=== PATIENT | female | born 1975 | race Caucasian/White ===

== ENCOUNTER 2018-05-31 10:27 | Emergency (ER) | payer OTHER ==
--- NOTE | 2018-05-31 10:40 | EDM.PDOC ---
ED HPI GENERAL MEDICAL PROBLEM - General Stated Complaint: BACK PAIN Time Seen by Provider: 05/31/18 10:40 Source of Information: Reports: Patient History Limitations: Reports: No Limitations - History of Present Illness INITIAL COMMENTS - FREE TEXT/NARRATIVE: HISTORY AND PHYSICAL: History of present illness: Patient is a 42-year-old female who presents to the emergency room today with complaints of lumbar back pain. She states she chronically has low back pain and intermittently will perform an activity where it will "lock up". Yesterday she was sleeping when her back had became very tight and had dropped her to her knees. She was able to continue her day as the muscles slowly began to loosen up and she was able to walk around. This morning Review of systems: As per history of present illness and below otherwise all systems reviewed and negative. Past medical history: As per history of present illness and as reviewed below otherwise noncontributory. Surgical history: As per history of present illness and as reviewed below otherwise noncontributory. Social history: See social history for further information Family history: As per history of present illness and as reviewed below otherwise noncontributory. Physical exam: General: Well-developed and well-nourished 42-year-old female. Alert and oriented. Nontoxic appearing and in no acute distress. HEENT: Atraumatic, normocephalic, pupils equal and reactive bilaterally, negative for conjunctival pallor or scleral icterus, mucous membranes moist, TMs normal bilaterally, throat clear, neck supple, nontender, trachea midline. No drooling or trismus noted. No meningeal signs. No hot potato voice noted. Lungs: Clear to auscultation, breath sounds equal bilaterally, chest nontender. Heart: S1S2, regular rate and rhythm without overt murmur Abdomen: Soft, nondistended, nontender. Negative for masses or hepatosplenomegaly. Negative for costovertebral tenderness. Pelvis: Stable nontender. Genitourinary: Deferred. Rectal: Deferred. Skin: Intact, warm, dry. No lesions or rashes noted. Extremities: Atraumatic, negative for cords or calf pain. Neurovascular unremarkable. C-spine/Back: No pinpoint vertebral tenderness upon palpation. No crepitus, step -offs or obvious deformities. She does have some paraspinous muscular pain to the low lumbar back region which radiates into her bilateral gluteal/lateral hip (right greater than left). She denies any numbness, tingling or satellite paresthesia. She denies any urinary or fecal incontinence. Neuro: Awake, alert, oriented. Cranial nerves II through XII unremarkable. Cerebellum unremarkable. Motor and sensory unremarkable throughout. Exam nonfocal. Notes: During physical exam the patient is crying and unable to get comfortable on the cot. X-ray of the lumbar spine shows no acute findings. She states she does feel improved after the injection. She does have a ride to home. Vital signs are stable. Supportive care measures were reviewed and discussed. Voices understanding and is agreeable to plan of care. Denies any further questions or concerns at this time. Diagnostics: Lumbar back x-ray Therapeutics: Dilaudid 1mg IM Prescription: Flexeril Diclofenac Impression: Acute on chronic low back pain Plan: 1. The medication he received as an injection today does cause drowsiness so do not drive for the remaining day 2. When resting please lay on a flat firm surface. Limit your immobility to prevent muscle stiffness, get up to ambulate/move around/gentle stretching multiple times throughout the day. May alternate heat and ice to the painful area and 3. Tylenol as needed for back pain. Otherwise take the prescribed Flexeril and diclofenac as directed. Diclofenac is an anti-inflammatory so do not take any additional NSAIDs with this medication, such as ibuprofen or Aleve. Flexeril as a muscle relaxant, this medication may cause drowsiness a do not take it will driving her needing to be functioning outside of the house. 4. Please follow-up with your primary care provider as we discussed. 5. Return to the ED as needed and as discussed. Definitive disposition and diagnosis as appropriate pending reevaluation and review of above. Back Pain Score (Numeric/FACES): 8 - Related Data Allergies Allergy/AdvReac Type Severity Reaction Status Date / Time No Known Allergies Allergy Verified 05/31/18 10:34 Home Meds: Home Meds . [No Known Home Meds] 05/31/18 [History] Past Medical History - Infectious Disease History Infectious Disease History: Reports: None - Past Surgical History GI Surgical History: Reports: Cholecystectomy Female Surgical History: Reports: Hysterectomy Social & Family History - Family History Family Medical History: Noncontributory ED ROS GENERAL - Review of Systems Review Of Systems: ROS reveals no pertinent complaints other than HPI. ED EXAM, GENERAL - Physical Exam Exam: See Below (See dictation) Course - Vital Signs Last Recorded V/S: Last Vital Signs Temp 97.8 F 05/31/18 10:36 Pulse 60 05/31/18 10:36 Resp 28 H 05/31/18 10:36 BP 120/63 05/31/18 10:36 Pulse Ox 99 05/31/18 10:36 - Orders/Labs/Meds Orders: Active Orders 24 hr Category Date Time Status Lumbar Spine 2 or 3V [CR] Stat Exams 05/31/18 10:49 Ordered Meds: Medications Discontinued Medications Generic Name Dose Route Start Last Admin Trade Name Freq PRN Reason Stop Dose Admin Hydromorphone HCl 1 mg 05/31/18 10:49 05/31/18 10:55 Dilaudid IM 05/31/18 10:50 Not Given ONETIME ONE Hydromorphone HCl 1 mg 05/31/18 11:00 05/31/18 10:59 Dilaudid IM 05/31/18 11:01 1 mg ONETIME ONE Administration Departure - Departure Time of Disposition: 11:34 Disposition: Home, Self-Care 01 Clinical Impression: Lumbar back pain - Discharge Information Instructions: Back Pain, Adult Referrals: PCP,None [Primary Care Provider] - Additional Instructions: The following information is given to patients seen in the emergency department who are being discharged to home. This information is to outline your options for follow-up care. We provide all patients seen in our emergency department with a follow-up referral. The need for follow-up, as well as the timing and circumstances, are variable depending upon the specifics of your emergency department visit. If you don't have a primary care physician on staff, we will provide you with a referral. We always advise you to contact your personal physician following an emergency department visit to inform them of the circumstance of the visit and for follow-up with them and/or the need for any referrals to a consulting specialist. The emergency department will also refer you to a specialist when appropriate. This referral assures that you have the opportunity for follow-up care with a specialist. All of these measure are taken in an effort to provide you with optimal care, which includes your follow-up. Under all circumstances we always encourage you to contact your private physician who remains a resource for coordinating your care. When calling for follow-up care, please make the office aware that this follow-up is from your recent emergency room visit. If for any reason you are refused follow-up, please contact the [facility] Emergency Department at and asked to speak to the emergency department charge nurse. [facility] [address] [place] [address] [facility] [address] [place] [address] 1. The medication he received as an injection today does cause drowsiness so do not drive for the remaining day 2. When resting please lay on a flat firm surface. Limit your immobility to prevent muscle stiffness, get up to ambulate/move around/gentle stretching multiple times throughout the day. May alternate heat and ice to the painful area and 3. Tylenol as needed for back pain. Otherwise take the prescribed Flexeril and diclofenac as directed. Diclofenac is an anti-inflammatory so do not take any additional NSAIDs with this medication, such as ibuprofen or Aleve. Flexeril as a muscle relaxant, this medication may cause drowsiness a do not take it will driving her needing to be functioning outside of the house. 4. Please follow-up with your primary care provider as we discussed. 5. Return to the ED as needed and as discussed. - My Orders Last 24 Hours: My Active Orders 05/31/18 10:49 Lumbar Spine 2 or 3V [CR] Stat - Assessment/Plan Last 24 Hours: My Active Orders 05/31/18 10:49 Lumbar Spine 2 or 3V [CR] Stat
[2018-05-31] MEDS ORDERED: HYDROmorphone 2 MG/ML SDV IM ONE (10:49)
[2018-05-31] MEDS ORDERED: HYDROmorphone 1 MG/ML Syringe IM ONE (11:00)
--- NOTE | 2018-05-31 11:33 | CR ---
INDICATION: Back pain. TECHNIQUE: Three views lumbar spine. FINDINGS: Five lumbar type vertebral bodies. Vertebral bodies are normal in height and alignment. Pedicles, transverse processes, spinous processes are intact. Disc spaces are normal. IMPRESSION: Normal lumbar spine. Dictated by Bahman Whittaker MD @ May 31 2018 11:30AM Signed by Dr. Bahman Whittaker @ May 31 2018 11:31AM
== END 2018-05-31 11:48 | disposition home or self-care (01) ==
LOC: MW.ED 10:27
DX: M54.5 Low back pain (principal); G89.29 Other chronic pain
CPT/HCPCS: 72100; 96372; 99283; J1170

== ENCOUNTER 2018-10-26 10:41 | Emergency (ER) | payer OTHER ==
[2018-10-26] MEDS ORDERED: Sodium Chloride 0.9% 10 ML Syringe FLUSH PRN (10:47)
[2018-10-26] MEDS ORDERED: Sodium Chloride 0.9% 2.5 ML Syringe FLUSH PRN (10:47)
[2018-10-26] MEDS ORDERED: Sodium Chloride 0.9% 1,000 ML IV ONE (10:47)
[2018-10-26] MEDS ORDERED: Ketorolac 60 MG/2 ML SDV IM ONE (10:48)
--- NOTE | 2018-10-26 10:48 | EDM.PDOC ---
ED HPI GENERAL MEDICAL PROBLEM - General Chief Complaint: Chest Pain Stated Complaint: CHEST DISCOMFORT Time Seen by Provider: 10/26/18 10:48 Source of Information: Reports: Patient History Limitations: Reports: No Limitations - History of Present Illness INITIAL COMMENTS - FREE TEXT/NARRATIVE: HISTORY AND PHYSICAL: History of present illness: patient is a 42-year-old female presents to the ED with concern of left arm pain. She reports a history of cervical disc disease and numbness of her right arm and hand. She states this morning around 4 AM she started having a sharp pain in her left arm that really concerned her. She reports that now she has a dull ache in the arm with an occasional sharp pain. Pain goes into her left chest behind her left shoulder blade and down her left arm. She states she does get short of breath when she has the sharp pain but also notes that she has been anxious because the pain and thinks may be due to this. She denies any recent injury or trauma to the neck or arm. She reports that she has neck pain and headache and she always has this and is not new or worsened. She denies any visual disturbances, fevers, chills, nausea, vomiting, abdominal pain. Has history of mitral valve prolapse but otherwise denies cardiac history. Review of systems: As per history of present illness and below otherwise all systems reviewed and negative. Past medical history: As per history of present illness and as reviewed below otherwise noncontributory. Surgical history: As per history of present illness and as reviewed below otherwise noncontributory. Social history: No reported history of drug or alcohol abuse. Family history: As per history of present illness and as reviewed below otherwise noncontributory. Physical exam: General: Patient sitting comfortably in no acute distress and nontoxic appearing HEENT: Atraumatic, normocephalic, pupils reactive, negative for conjunctival pallor or scleral icterus, mucous membranes moist, throat clear, neck supple, nontender, trachea midline. No meningeal signs. Lungs: Clear to auscultation, breath sounds equal bilaterally, chest nontender. Heart: S1S2, regular, negative for clicks, rubs, or overt murmur. Abdomen: Soft, nondistended, nontender. Negative for masses or hepatosplenomegaly. Negative for costovertebral tenderness. No rigidity, rebound , guarding. Pelvis: Stable nontender. Genitourinary: Deferred. Rectal: Deferred. Spine: No cervical or vertebral tenderness or step-offs palpation. Cervical paraspinal tenderness. Extremities: Atraumatic, negative for cords or calf pain. Neurovascular unremarkable. Neuro: Awake, alert, oriented. Cranial nerves II through XII unremarkable. Cerebellum unremarkable. Motor and sensory unremarkable throughout. Exam nonfocal. Notes: Diagnostics: CBC, CMP, troponin, PT/INR, EKG, chest x-ray, cervical spine x-ray Therapeutics: Toradol 30 mg IV Norflex 60mg IM Prescriptions: Impression: Carvical radiculopathy, arm pain Plan: Take medication as instructed, do not driving as it may make you drowsy. Tylenol and Motrin as needed Follow-up with primary care provider Return to ED as needed as discussed Definitive disposition and diagnosis as appropriate pending reevaluation and review of above. Left Arm Pain Score (Numeric/FACES): 7 - Related Data Allergies Allergy/AdvReac Type Severity Reaction Status Date / Time No Known Allergies Allergy Verified 10/26/18 10:46 Home Meds: Home Meds Estradiol 0.5 mg PO ASDIRECTED 10/26/18 [History] Orphenadrine [Norflex] 100 mg PO BID PRN #12 tab 10/26/18 [Rx] Past Medical History - Infectious Disease History Infectious Disease History: Reports: None - Past Surgical History GI Surgical History: Reports: Cholecystectomy Female Surgical History: Reports: Hysterectomy Social & Family History - Family History Family Medical History: Noncontributory - Caffeine Use Caffeine Use: Reports: Coffee ED ROS GENERAL - Review of Systems Review Of Systems: ROS reveals no pertinent complaints other than HPI. ED EXAM, GENERAL - Physical Exam Exam: See Below (see dictation) Course - Vital Signs Last Recorded V/S: Last Vital Signs Temp 97.5 F 10/26/18 10:42 Pulse 70 10/26/18 10:42 Resp 18 10/26/18 10:42 BP 141/81 H 10/26/18 10:42 Pulse Ox 100 10/26/18 10:42 - Orders/Labs/Meds Orders: Active Orders 24 hr Category Date Time Status Cardiac Monitoring [RC] . DIRECTED Care 10/26/18 10:47 Active UA W/MICROSCOPIC [URIN] Stat Lab 10/26/18 10:47 Ordered Sodium Chloride 0.9% [Saline Flush] Med 10/26/18 10:47 Active 10 ml FLUSH ASDIRECTED PRN Sodium Chloride 0.9% [Saline Flush] Med 10/26/18 10:47 Active 2.5 ml FLUSH ASDIRECTED PRN Saline Lock Insert [OM.PC] Stat Oth 10/26/18 10:47 Ordered Medication Orders Sodium Chloride (Saline Flush) 10 ml FLUSH ASDIRECTED PRN PRN Reason: Keep Vein Open Sodium Chloride (Saline Flush) 2.5 ml FLUSH ASDIRECTED PRN PRN Reason: Keep Vein Open Labs: Laboratory Tests 10/26/18 10/26/18 10/26/18 Range/Units 10:53 10:53 10:53 WBC 8.78 (4.0-11.0) K/uL RBC 4.26 L (4.30-5.90) M/uL Hgb 13.5 (12.0-16.0) g/dL Hct 40.9 (36.0-46.0) % MCV 96.0 (80.0-98.0) fL MCH 31.7 (27.0-32.0) pg MCHC 33.0 (31.0-37.0) g/dL RDW Std Deviation 43.4 (28.0-62.0) fl RDW Coeff of Brodie 13 (11.0-15.0) % Plt Count 275 (150-400) K/uL MPV 10.40 (7.40-12.00) fL Neut % (Auto) 73.3 (48.0-80.0) % Lymph % (Auto) 18.3 (16.0-40.0) % Bee % (Auto) 7.3 (0.0-15.0) % Eos % (Auto) 0.8 (0.0-7.0) % Baso % (Auto) 0.3 (0.0-1.5) % Neut # (Auto) 6.4 H (1.4-5.7) K/uL Lymph # (Auto) 1.6 (0.6-2.4) K/uL Bee # (Auto) 0.6 (0.0-0.8) K/uL Eos # (Auto) 0.1 (0.0-0.7) K/uL Baso # (Auto) 0.0 (0.0-0.1) K/uL Nucleated RBC % 0.0 /100WBC Nucleated RBCs # 0 K/uL INR 1.06 Sodium 135 L (136-145) mmol/L Potassium 3.8 (3.5-5.1) mmol/L Chloride 101 (98-107) mmol/L Carbon Dioxide 24.4 (21.0-32.0) mmol/L BUN 11 (7.0-18.0) mg/dL Creatinine 0.6 (0.6-1.0) mg/dL Est Cr Clr Drug Dosing 105.47 mL/min Estimated GFR (MDRD) > 60.0 ml/min Glucose 115 H (74-106) mg/dL Calcium 9.5 (8.5-10.1) mg/dL Total Bilirubin 0.5 (0.2-1.0) mg/dL AST 15 (15-37) IU/L ALT 22 (14-63) IU/L Alkaline Phosphatase 52 (46-116) U/L Troponin I < 0.050 (0.000-0.056) ng/mL Total Protein 7.4 (6.4-8.2) g/dL Albumin 4.0 (3.4-5.0) g/dL Globulin 3.4 (2.6-4.0) g/dL Albumin/Globulin Ratio 1.2 (0.9-1.6) Lipase 129 (73-393) U/L Meds: Medications Generic Name Dose Route Start Last Admin Trade Name Freq PRN Reason Stop Dose Admin Sodium Chloride 10 ml 10/26/18 10:47 Saline Flush FLUSH ASDIRECTED PRN Keep Vein Open Sodium Chloride 2.5 ml 10/26/18 10:47 Saline Flush FLUSH ASDIRECTED PRN Keep Vein Open Discontinued Medications Generic Name Dose Route Start Last Admin Trade Name Freq PRN Reason Stop Dose Admin Sodium Chloride 1,000 mls @ 999 mls/hr 10/26/18 10:47 10/26/18 10:58 Normal Saline IV 10/26/18 11:47 999 mls/hr BOLUS ONE Administration Ketorolac Tromethamine 30 mg 10/26/18 10:50 10/26/18 10:59 Toradol IVPUSH 10/26/18 10:51 30 mg ONETIME ONE Administration Orphenadrine Citrate 60 mg 10/26/18 12:33 10/26/18 12:40 Norflex IM 10/26/18 12:34 60 mg NOW STA Administration Departure - Departure Time of Disposition: 12:49 Disposition: Home, Self-Care 01 Condition: Good Clinical Impression: Arm pain, Cervical radiculopathy Prescriptions: Orphenadrine [Norflex] 100 mg PO BID PRN #12 tab PRN Reason: Pain (Severe 7-10) Referrals: PCP,None [Primary Care Provider] - Forms: ED Department Discharge Additional Instructions: The following information is given to patients seen in the emergency department who are being discharged to home. This information is to outline your options for follow-up care. We provide all patients seen in our emergency department with a follow-up referral. The need for follow-up, as well as the timing and circumstances, are variable depending upon the specifics of your emergency department visit. If you don't have a primary care physician on staff, we will provide you with a referral. We always advise you to contact your personal physician following an emergency department visit to inform them of the circumstance of the visit and for follow-up with them and/or the need for any referrals to a consulting specialist. The emergency department will also refer you to a specialist when appropriate. This referral assures that you have the opportunity for follow-up care with a specialist. All of these measure are taken in an effort to provide you with optimal care, which includes your follow-up. Under all circumstances we always encourage you to contact your private physician who remains a resource for coordinating your care. When calling for follow-up care, please make the office aware that this follow-up is from your recent emergency room visit. If for any reason you are refused follow-up, please contact the [facility] Emergency Department at and asked to speak to the emergency department charge nurse. [facility] [address] [place] [id number] [facility] [address] [place] [id number] Take medication as instructed, do not driving as it may make you drowsy. Tylenol and Motrin as needed Follow-up with primary care provider Return to ED as needed as discussed - My Orders Last 24 Hours: My Active Orders 10/26/18 10:47 Cardiac Monitoring [RC] . DIRECTED UA W/MICROSCOPIC [URIN] Stat Sodium Chloride 0.9% [Saline Flush] 10 ml FLUSH ASDIRECTED PRN Sodium Chloride 0.9% [Saline Flush] 2.5 ml FLUSH ASDIRECTED PRN Saline Lock Insert [OM.PC] Stat - Assessment/Plan Last 24 Hours: My Active Orders 10/26/18 10:47 Cardiac Monitoring [RC] . DIRECTED UA W/MICROSCOPIC [URIN] Stat Sodium Chloride 0.9% [Saline Flush] 10 ml FLUSH ASDIRECTED PRN Sodium Chloride 0.9% [Saline Flush] 2.5 ml FLUSH ASDIRECTED PRN Saline Lock Insert [OM.PC] Stat
[2018-10-26] MEDS ORDERED: Ketorolac 30 MG/ML SDV IVPUSH ONE (10:50)
[2018-10-26 11:37] LABS: BLOOD UREA NITROGEN,BUN 11 mg/dL (7.0-18.0); CARBON DIOXIDE,CO2 24.4 mmol/L (21.0-32.0); CHLORIDE,CL 101 mmol/L (98-107); GLUCOSE RANDOM 115 mg/dL (74-106); LIPASE 129 U/L (73-393); POTASSIUM,K 3.8 mmol/L (3.5-5.1); SODIUM,NA 135 mmol/L (136-145)
--- NOTE | 2018-10-26 12:38 | CR ---
INDICATION: Chest pain COMPARISON: none TECHNIQUE: Two view chest. FINDINGS: The lungs are clear. There is no evidence of pneumothorax. The heart, mediastinum and pulmonary vessels are of normal size. There is no evidence of pleural fluid. IMPRESSION: Negative chest. Dictated by Price Bar MD @ Oct 26 2018 12:36PM Signed by Dr. Price Bar @ Oct 26 2018 12:37PM
--- NOTE | 2018-10-26 12:40 | CR ---
INDICATION: Neck pain TECHNIQUE: 3-view cervical spine. COMPARISON: none FINDINGS: The cervical vertebrae are anatomically aligned. There is degenerative disc space narrowing, endplate sclerosis and anterior marginal osteophyte formation at C6-7. The facet joints appear intact. There is no evidence of a fracture or intrinsic bone lesion. The paraspinal soft tissues appear normal. IMPRESSION: Disc degeneration noted at C6-7. Dictated by Price Bar MD @ Oct 26 2018 12:37PM Signed by Dr. Price Bar @ Oct 26 2018 12:38PM
== END 2018-10-26 13:04 | disposition home or self-care (01) ==
LOC: MW.ED 10:41
DX: M54.12 Radiculopathy, cervical region (principal); M79.602 Pain in left arm; Z79.899 Other long term (current) drug therapy
CPT/HCPCS: 36415; 71046; 72040; 80053; 83690; 84484; 85025; 85610; 93005; 96361; 96372; 96374; 99283; J1885; J2360; J7040; 99284

== ENCOUNTER 2018-11-05 21:24 | Emergency (ER) | payer OTHER ==
--- NOTE | 2018-11-05 21:32 | EDM.PDOC ---
ED HPI GENERAL MEDICAL PROBLEM - General Stated Complaint: UNKNOWN Time Seen by Provider: 11/05/18 21:25 - History of Present Illness INITIAL COMMENTS - FREE TEXT/NARRATIVE: HISTORY AND PHYSICAL: History of present illness: Patient 42-year-old white female presents status post fall which she hit her head sustaining a scalp laceration is no loss of consciousness he has no bleeding diathesis there's been no nausea no vomiting she denies any other trauma concern and she is up-to-date on her tetanus Review of systems: As per history of present illness and below otherwise all systems reviewed and negative. Past medical history: As per history of present illness and as reviewed below otherwise noncontributory. Surgical history: As per history of present illness and as reviewed below otherwise noncontributory. Social history: No reported history of drug or alcohol abuse. Family history: As per history of present illness and as reviewed below otherwise noncontributory. Physical exam: HEENT: Patient has approximately 4 cm moderate depth laceration to her left temporal occipital scalp there is no step-off no depression, normocephalic, pupils reactive, negative for conjunctival pallor or scleral icterus, mucous membranes moist, throat clear, neck supple, nontender, trachea midline. Lungs: Clear to auscultation, breath sounds equal bilaterally, chest nontender. Heart: S1S2, regular, negative for clicks, rubs, or JVD. Abdomen: Soft, nondistended, nontender. Negative for masses or hepatosplenomegaly. Negative for costovertebral tenderness. Pelvis: Stable nontender. Genitourinary: Deferred. Rectal: Deferred. Extremities: Atraumatic, negative for cords or calf pain. Neurovascular unremarkable. Neuro: Awake, alert, oriented. Cranial nerves II through XII unremarkable. Cerebellum unremarkable. Motor and sensory unremarkable throughout. Exam nonfocal. Diagnostics: None Therapeutics: #1 scalp leg was irrigated with copious 0.9 normal saline closed with stainless steel jean-pierre bacitracin was applied Impression: #1 head injury with scalp laceration Definitive disposition and diagnosis as appropriate pending reevaluation and review of above. - Related Data Allergies Allergy/AdvReac Type Severity Reaction Status Date / Time No Known Allergies Allergy Verified 10/26/18 10:46 Home Meds: Home Meds Estradiol 0.5 mg PO ASDIRECTED 10/26/18 [History] Orphenadrine [Norflex] 100 mg PO BID PRN #12 tab 10/26/18 [Rx] Past Medical History Cardiovascular History: Reports: Other (See Below) Other Cardiovascular History: mitral valve prolapse Musculoskeletal History: Reports: Other (See Below) Other Musculoskeletal History: ruptured cervical disc - Infectious Disease History Infectious Disease History: Reports: None - Past Surgical History GI Surgical History: Reports: Cholecystectomy Female Surgical History: Reports: Hysterectomy Social & Family History - Family History Family Medical History: Noncontributory - Caffeine Use Caffeine Use: Reports: Coffee ED ROS GENERAL - Review of Systems Review Of Systems: ROS reveals no pertinent complaints other than HPI. ED EXAM, GENERAL - Physical Exam Exam: See Below (See dictation) Departure - Departure Time of Disposition: 21:32 Disposition: Home, Self-Care 01 Condition: Good Clinical Impression: Head injury, Scalp laceration - Discharge Information Additional Instructions: The following information is given to patients seen in the emergency department who are being discharged to home. This information is to outline your options for follow-up care. We provide all patients seen in our emergency department with a follow-up referral. The need for follow-up, as well as the timing and circumstances, are variable depending upon the specifics of your emergency department visit. If you don't have a primary care physician on staff, we will provide you with a referral. We always advise you to contact your personal physician following an emergency department visit to inform them of the circumstance of the visit and for follow-up with them and/or the need for any referrals to a consulting specialist. The emergency department will also refer you to a specialist when appropriate. This referral assures that you have the opportunity for followup care with a specialist. All of these measure are taken in an effort to provide you with optimal care, which includes your followup. Under all circumstances we always encourage you to contact your private physician who remains a resource for coordinating your care. When calling for followup care, please make the office aware that this follow-up is from your recent emergency room visit. If for any reason you are refused follow-up, please contact the [facility] emergency department at and asked to speak to the emergency department charge nurse. Follow-up primary medical doctor wound check 48 hour staple removal 10-14 days return as needed as discussed
[2018-11-05] MEDS ORDERED: Acetaminophen 500 MG Tab PO ONE (21:51)
--- NOTE | 2018-11-05 23:01 | CT ---
INDICATION: Fall, head laceration TECHNIQUE: CT head without contrast. COMPARISON: None FINDINGS: CSF spaces: Within normal limits for age. Brain parenchyma: The christianson-white differentiation is normal. No sign of mass, hemorrhage, or midline shift. Skull base and calvarium: The visualized paranasal sinuses and mastoid air cells demonstrate no acute or significant findings. The visualized orbits are grossly unremarkable. No skull fractures. Left lateral scalp laceration and contusion with overlying skin jean-pierre. IMPRESSION: No intracranial hemorrhage or skull fracture. Left lateral scalp laceration and contusion with skin jean-pierre in place. Please note that all CT scans at this facility use dose modulation, iterative reconstruction, and/or weight-based dosing when appropriate to reduce radiation dose to as low as reasonably achievable. Dictated by Ana Lamas MD @ Nov 05 2018 11:00PM Signed by Dr. Ana Lamas @ Nov 05 2018 11:00PM
== END 2018-11-05 23:12 | disposition home or self-care (01) ==
LOC: MW.ED 21:24
DX: S01.01XA Laceration without foreign body of scalp, initial encounter (principal); Z79.899 Other long term (current) drug therapy; Z90.49 Acquired absence of other specified parts of digestive tract; Z90.710 Acquired absence of both cervix and uterus; W19.XXXA Unspecified fall, initial encounter
CPT/HCPCS: 12002; 70450; 99283; A9270; 99282

== ENCOUNTER 2019-11-15 18:32 | Emergency (ER) | payer BC, OTHER ==
[2019-11-15] MEDS ORDERED: Sodium Chloride 0.9% 10 ML Syringe FLUSH PRN (18:38)
[2019-11-15] MEDS ORDERED: Sodium Chloride 0.9% 2.5 ML Syringe FLUSH PRN ×2 (18:38)
[2019-11-15] MEDS ORDERED: Aspirin 81 MG Tab.Chew PO ONE (18:38)
[2019-11-15] MEDS ORDERED: Metoprolol Succinate 25 MG Tab.ER PO ONE (18:39)
[2019-11-15] MEDS ORDERED: Adenosine 6 MG/2 ML SDV IVPUSH ONE (18:39)
--- NOTE | 2019-11-15 18:47 | EDM.PDOC ---
<Rony Meeks Bella - Last Filed: 11/15/19 18:42> ED HPI GENERAL MEDICAL PROBLEM - General Chief Complaint: Cardiovascular Problem Stated Complaint: HEART PALPITATION Time Seen by Provider: 11/15/19 18:38 - History of Present Illness INITIAL COMMENTS - FREE TEXT/NARRATIVE: History of present illness: Patient presents with palpitations chest pressure and trouble breathing. It is noted that she has a heart rate in the 180s she was immediately brought back to her room and it was necessary to perform a cardioversion with adenosine for SVT. She states she has been feeling very anxious and upset lately she also has been very fatigued for the past several weeks she has recovered from COVID-19 approximately a month ago she denies any stimulants she has not had prior cardiac arrhythmias or heart problems she does not use any substances although she did take some vodka shots this week because of her anxiety she is not a habitual drinker. She denies any other medical problems other than the recent anxiety and is currently taking no medications. While she was symptomatic she had a racing heart anxiety and a pounding in her chest. She was having trouble catching her breath during that time after cardioversion she is feeling much better immediately. Review of systems: As per history of present illness and below otherwise all systems reviewed and negative. Past medical history: As per history of present illness and as reviewed below otherwise noncontributory. Surgical history: As per history of present illness and as reviewed below otherwise noncontributory. Social history: No reported history of drug or alcohol abuse. Family history: As per history of present illness and as reviewed below otherwise noncontributory. Physical exam: HEENT: Atraumatic, normocephalic, pupils reactive, negative for conjunctival pallor or scleral icterus, mucous membranes moist, throat clear, neck supple, nontender, trachea midline. Lungs: Clear to auscultation, breath sounds equal bilaterally, chest nontender. Heart: S1S2, regular, negative for clicks, rubs, or JVD. Tachycardia in the 180s Abdomen: Soft, nondistended, nontender. Negative for masses or hepatosplenomegaly. Negative for costovertebral tenderness. Pelvis: Stable nontender. Genitourinary: Deferred. Rectal: Deferred. Extremities: Atraumatic, negative for cords or calf pain. Neurovascular unremarkable. Neuro: Awake, alert, oriented. Cranial nerves II through XII unremarkable. Cerebellum unremarkable. Motor and sensory unremarkable throughout. Exam nonfocal. Diagnostics: [] Therapeutics: [] Impression: SVT [] Plan: Adenosine cardioversion cardiac work-up. [] Definitive disposition and diagnosis as appropriate pending reevaluation and review of above. - Related Data Allergies Allergy/AdvReac Type Severity Reaction Status Date / Time No Known Allergies Allergy Verified 11/15/19 18:42 Home Meds: Home Meds Metoprolol Succinate [Toprol XL] 25 mg PO DAILY #20 tab.er 11/15/19 [Rx] Past Medical History Cardiovascular History: Reports: Other (See Below) Other Cardiovascular History: mitral valve prolapse Musculoskeletal History: Reports: Other (See Below) Other Musculoskeletal History: ruptured cervical disc - Infectious Disease History Infectious Disease History: Reports: None - Past Surgical History GI Surgical History: Reports: Cholecystectomy Female Surgical History: Reports: Hysterectomy Social & Family History - Family History Family Medical History: Noncontributory - Caffeine Use Caffeine Use: Reports: Coffee ED ROS GENERAL - Review of Systems Review Of Systems: See Below ED EXAM, GENERAL - Physical Exam Exam: See Below EKG INTERPRETATION EKG Interpretation Comments: EKG #1 it is a supraventricular tachycardia at 190 bpm no ischemic changes read and interpreted by me EKG #2 is a normal sinus rhythm sinus tachycardia 117 bpm with multifocal PVCs no ischemic changes QT interval is elevated at 387 Course - Vital Signs Text/Narrative:: Procedure: Patient was placed on a panel monitor IV was established and 6 of adenosine was used to convert her SVT to a normal sinus rhythm and sinus tachycardia. No complications Departure - Departure Disposition: Home, Self-Care 01 Clinical Impression: SVT (supraventricular tachycardia) Prescriptions: Metoprolol Succinate [Toprol XL] 25 mg PO DAILY #20 tab.er Instructions: Supraventricular Tachycardia, Adult, [id number], Sinus Tachycardia Referrals: Tulio Hutchison MD [Physician] - 2 Days Jane Espino DO [Primary Care Provider] - 2 Days Forms: ED Department Discharge Additional Instructions: You had an episode of supraventricular tachycardia today. This was converted back to a normal sinus rhythm with the assistance of a medication called adenosine. Hopefully you will not have this rhythm occur again, however if you do notice your heart rate very elevated, please return to the emergency department, and also if you develop chest pain. A prescription for metoprolol has been given to you. You may take this until you see the wet pour mixer. Please see the wet pour mixer listed above for reevaluation and possibly outpatient cardiac monitoring. Drink plenty of fluids. Rest and no strenuous activity until you see the wet pour mixer. The following information is given to patients seen in the emergency department who are being discharged to home. This information is to outline your options for follow-up care. We provide all patients seen in our emergency department with a follow-up referral. The need for follow-up, as well as the timing and circumstances, are variable depending upon the specifics of your emergency department visit. If you don't have a primary care physician on staff, we will provide you with a referral. We always advise you to contact your personal physician following an emergency department visit to inform them of the circumstance of the visit and for follow-up with them and/or the need for any referrals to a consulting specialist. The emergency department will also refer you to a specialist when appropriate. This referral assures that you have the opportunity for follow-up care with a specialist. All of these measure are taken in an effort to provide you with optimal care, which includes your follow-up. Under all circumstances we always encourage you to contact your private physician who remains a resource for coordinating your care. When calling for follow-up care, please make the office aware that this follow-up is from your recent emergency room visit. If for any reason you are refused follow-up, please contact the [facility] Emergency Department at and asked to speak to the emergency department charge nurse. Sepsis Event Note (ED) - Evaluation Sepsis Screening Result: No Definite Risk <Daphnie Noriega - Last Filed: 11/15/19 21:03> EKG INTERPRETATION EKG Interpretation Comments: EKG #3, performed at 8:12 PM, sinus rhythm, rate 92, no acute ischemia, no STEMI. QTc 471. Course - Vital Signs Text/Narrative:: Received in at 7 PM. Found to be in SVT on arrival here with diaphoresis. Given adenosine and converted back to sinus. Labs pending. Labs all unremarkable including negative d-dimer and negative hCG, and negative troponin. UA negative. Chest x-ray negative. No acute ischemia on EKG. Patient remained in sinus rhythm for the remainder of her hospital stay. Asymptomatic on reassessment. No prior history of SVT although the patient does report that she has occasionally had elevated heart rates and a feeling of irregularity/palpitations in the past for which she never sought medical care, with rates up into the 150s. Today she noted the rate to be in the 200s and that is why she came in. Last Recorded V/S: Last Vital Signs Temp 97.4 F 11/15/19 18:32 Pulse 95 11/15/19 18:50 Resp 18 11/15/19 18:32 BP 129/80 11/15/19 18:50 Pulse Ox 98 11/15/19 18:32 - Orders/Labs/Meds Orders: Active Orders 24 hr Category Date Time Status EKG 12 Lead [EKG Documentation Completion] [RC] STAT Care 11/15/19 19:45 Active EKG Documentation Completion [RC] STAT Care 11/15/19 18:38 Active EKG Documentation Completion [RC] STAT Care 11/15/19 18:55 Active Sodium Chloride 0.9% [Normal Saline] 1,000 ml Med 11/15/19 19:45 Active IV ASDIRECTED Sodium Chloride 0.9% [Saline Flush] Med 11/15/19 18:38 Active 10 ml FLUSH ASDIRECTED PRN Sodium Chloride 0.9% [Saline Flush] Med 11/15/19 18:38 Active 2.5 ml FLUSH ASDIRECTED PRN Sodium Chloride 0.9% [Saline Flush] Med 11/15/19 18:38 Active 2.5 ml FLUSH ASDIRECTED PRN Saline Lock Insert [OM.PC] Stat Oth 11/15/19 18:38 Ordered Medication Orders Sodium Chloride (Normal Saline) 1,000 mls @ 999 mls/hr IV ASDIRECTED BENOIT Last Admin: 11/15/19 20:10 Dose: 999 mls/hr Documented by: BEBO Sodium Chloride (Saline Flush) 2.5 ml FLUSH ASDIRECTED PRN PRN Reason: Keep Vein Open Sodium Chloride (Saline Flush) 2.5 ml FLUSH ASDIRECTED PRN PRN Reason: Keep Vein Open Sodium Chloride (Saline Flush) 10 ml FLUSH ASDIRECTED PRN PRN Reason: Keep Vein Open Labs: Laboratory Tests 11/15/19 11/15/19 11/15/19 Range/Units 18:50 18:50 18:50 WBC 9.05 (4.0-11.0) K/uL RBC 4.04 L (4.30-5.90) M/uL Hgb 13.5 (12.0-16.0) g/dL Hct 40.7 (36.0-46.0) % MCV 100.7 H (80.0-98.0) fL MCH 33.4 H (27.0-32.0) pg MCHC 33.2 (31.0-37.0) g/dL RDW Std Deviation 46.4 (28.0-62.0) fl RDW Coeff of Brodie 13 (11.0-15.0) % Plt Count 280 (150-400) K/uL MPV 10.10 (7.40-12.00) fL Neut % (Auto) 79.1 (48.0-80.0) % Lymph % (Auto) 15.8 L (16.0-40.0) % Gilchrist % (Auto) 4.4 (0.0-15.0) % Eos % (Auto) 0.1 (0.0-7.0) % Baso % (Auto) 0.6 (0.0-1.5) % Neut # (Auto) 7.2 H (1.4-5.7) K/uL Lymph # (Auto) 1.4 (0.6-2.4) K/uL Gilchrist # (Auto) 0.4 (0.0-0.8) K/uL Eos # (Auto) 0.0 (0.0-0.7) K/uL Baso # (Auto) 0.1 (0.0-0.1) K/uL Nucleated RBC % 0.0 /100WBC Nucleated RBCs # 0 K/uL D-Dimer, Quantitative (0.0-0.50) mg/L FEU Sodium 142 (136-145) mmol/L Potassium 3.0 L (3.5-5.1) mmol/L Chloride 104 (98-107) mmol/L Carbon Dioxide 13.5 L (21.0-32.0) mmol/L BUN 9 (7.0-18.0) mg/dL Creatinine 0.8 (0.6-1.0) mg/dL Est Cr Clr Drug Dosing 78.30 mL/min Estimated GFR (MDRD) > 60.0 ml/min Glucose 76 (74-106) mg/dL Calcium 7.6 L (8.5-10.1) mg/dL Magnesium 1.7 L (1.8-2.4) mg/dL Total Bilirubin 0.5 (0.2-1.0) mg/dL AST 76 H (15-37) IU/L ALT 42 (14-63) IU/L Alkaline Phosphatase 82 (46-116) U/L Troponin I < 0.050 (0.000-0.056) ng/mL Total Protein 6.6 (6.4-8.2) g/dL Albumin 3.7 (3.4-5.0) g/dL Globulin 2.9 (2.6-4.0) g/dL Albumin/Globulin Ratio 1.3 (0.9-1.6) TSH 3rd Generation 1.59 (0.36-3.74) uIU/mL HCG, Qual (NEG) Urine Color Urine Appearance Urine pH (5.0-8.0) Ur Specific Howell (1.001-1.035) Urine Protein (NEGATIVE) mg/dL Urine Glucose (UA) (NEGATIVE) mg/dL Urine Ketones (NEGATIVE) mg/dL Urine Occult Blood (NEGATIVE) Urine Nitrite (NEGATIVE) Urine Bilirubin (NEGATIVE) Urine Urobilinogen (<2.0) EU/dL Ur Leukocyte Esterase (NEGATIVE) Urine RBC (0-2/HPF) Urine WBC (0-5/HPF) Ur Epithelial Cells (NONE-FEW) Urine Bacteria (NEGATIVE) 11/15/19 11/15/19 11/15/19 Range/Units 18:50 18:50 20:05 WBC (4.0-11.0) K/uL RBC (4.30-5.90) M/uL Hgb (12.0-16.0) g/dL Hct (36.0-46.0) % MCV (80.0-98.0) fL MCH (27.0-32.0) pg MCHC (31.0-37.0) g/dL RDW Std Deviation (28.0-62.0) fl RDW Coeff of Brodie (11.0-15.0) % Plt Count (150-400) K/uL MPV (7.40-12.00) fL Neut % (Auto) (48.0-80.0) % Lymph % (Auto) (16.0-40.0) % Gilchrist % (Auto) (0.0-15.0) % Eos % (Auto) (0.0-7.0) % Baso % (Auto) (0.0-1.5) % Neut # (Auto) (1.4-5.7) K/uL Lymph # (Auto) (0.6-2.4) K/uL Gilchrist # (Auto) (0.0-0.8) K/uL Eos # (Auto) (0.0-0.7) K/uL Baso # (Auto) (0.0-0.1) K/uL Nucleated RBC % /100WBC Nucleated RBCs # K/uL D-Dimer, Quantitative 0.32 (0.0-0.50) mg/L FEU Sodium (136-145) mmol/L Potassium (3.5-5.1) mmol/L Chloride (98-107) mmol/L Carbon Dioxide (21.0-32.0) mmol/L BUN (7.0-18.0) mg/dL Creatinine (0.6-1.0) mg/dL Est Cr Clr Drug Dosing mL/min Estimated GFR (MDRD) ml/min Glucose (74-106) mg/dL Calcium (8.5-10.1) mg/dL Magnesium (1.8-2.4) mg/dL Total Bilirubin (0.2-1.0) mg/dL AST (15-37) IU/L ALT (14-63) IU/L Alkaline Phosphatase (46-116) U/L Troponin I (0.000-0.056) ng/mL Total Protein (6.4-8.2) g/dL Albumin (3.4-5.0) g/dL Globulin (2.6-4.0) g/dL Albumin/Globulin Ratio (0.9-1.6) TSH 3rd Generation (0.36-3.74) uIU/mL HCG, Qual NEGATIVE (NEG) Urine Color YELLOW Urine Appearance HAZY Urine pH 6.0 (5.0-8.0) Ur Specific Howell 1.025 (1.001-1.035) Urine Protein NEGATIVE (NEGATIVE) mg/dL Urine Glucose (UA) NEGATIVE (NEGATIVE) mg/dL Urine Ketones 40 H (NEGATIVE) mg/dL Urine Occult Blood SMALL H (NEGATIVE) Urine Nitrite NEGATIVE (NEGATIVE) Urine Bilirubin NEGATIVE (NEGATIVE) Urine Urobilinogen 0.2 (<2.0) EU/dL Ur Leukocyte Esterase NEGATIVE (NEGATIVE) Urine RBC 0-4 (0-2/HPF) Urine WBC 0-2 (0-5/HPF) Ur Epithelial Cells FEW (NONE-FEW) Urine Bacteria FEW (NEGATIVE) Meds: Medications Generic Name Dose Route Start Last Admin Trade Name Freq PRN Reason Stop Dose Admin Sodium Chloride 1,000 mls @ 999 mls/hr 11/15/19 19:45 11/15/19 20:10 Normal Saline IV 999 mls/hr ASDIRECTED BENOIT Administration Sodium Chloride 2.5 ml 11/15/19 18:38 Saline Flush FLUSH ASDIRECTED PRN Keep Vein Open Sodium Chloride 2.5 ml 11/15/19 18:38 Saline Flush FLUSH ASDIRECTED PRN Keep Vein Open Sodium Chloride 10 ml 11/15/19 18:38 Saline Flush FLUSH ASDIRECTED PRN Keep Vein Open Discontinued Medications Generic Name Dose Route Start Last Admin Trade Name Freq PRN Reason Stop Dose Admin Acetaminophen 1,000 mg 11/15/19 19:16 11/15/19 19:41 Tylenol Extra Strength PO 11/15/19 19:17 1,000 mg ONETIME ONE Administration Adenosine 6 mg 11/15/19 18:39 11/15/19 18:57 Adenocard IVPUSH 11/15/19 18:40 6 mg NOW ONE Administration Aspirin 324 mg 11/15/19 18:38 11/15/19 18:50 Aspirin PO 11/15/19 18:39 324 mg ONETIME ONE Administration Sodium Chloride 1,000 mls @ 999 mls/hr 11/15/19 18:59 11/15/19 19:41 Normal Saline IV 11/15/19 19:59 999 mls/hr STAT STA Administration Metoprolol Succinate 25 mg 11/15/19 18:39 11/15/19 18:50 Toprol Xl PO 11/15/19 18:40 25 mg ONETIME ONE Administration - Re-Assessments/Exams Free Text/Narrative Re-Assessment/Exam: 11/15/19 20:45 Resting comfortably and in no acute distress. Heart rate is improved. Discussed all final results with the patient and plan of care for outpatient cardiology follow-up and plan for Holter monitoring, etc. Patient agrees with this plan. Departure - Departure Time of Disposition: 20:47 Reason for Transfer *Q: Other (n/a) Sepsis Event Note (ED) - Focused Exam Vital Signs: Vital Signs Temp Pulse Pulse Resp BP BP Pulse Ox 11/15/19 18:50 95 129/80 11/15/19 18:32 97.4 F 215 H 18 158/78 H 98 - My Orders Last 24 Hours: My Active Orders 11/15/19 19:45 EKG 12 Lead [EKG Documentation Completion] [RC] STAT Sodium Chloride 0.9% [Normal Saline] 1,000 ml IV ASDIRECTED - Assessment/Plan Last 24 Hours: My Active Orders 11/15/19 19:45 EKG 12 Lead [EKG Documentation Completion] [RC] STAT Sodium Chloride 0.9% [Normal Saline] 1,000 ml IV ASDIRECTED
[2019-11-15] MEDS ORDERED: Sodium Chloride 0.9% 1,000 ML IV STA (18:59)
[2019-11-15] MEDS ORDERED: Acetaminophen 500 MG Tab PO ONE (19:16)
[2019-11-15 19:35] LABS: BLOOD UREA NITROGEN,BUN 9 mg/dL (7.0-18.0); CARBON DIOXIDE,CO2 13.5 mmol/L (21.0-32.0); CHLORIDE,CL 104 mmol/L (98-107); GLUCOSE RANDOM 76 mg/dL (74-106); SODIUM,NA 142 mmol/L (136-145)
[2019-11-15] MEDS ORDERED: Sodium Chloride 0.9% 1,000 ML IV SCH (19:45)
--- NOTE | 2019-11-15 19:45 | CR ---
Clinical INDICATION: Chest pain. COMPARISON: 10/26/2018. FINDINGS: The heart is normal in size. The lungs are clear. The pulmonary vasculature and pleural surfaces appear normal. The bony thorax appears intact. There is an external pacemaker lead upon the right side of the chest. IMPRESSION: Negative study. Dictated by Stu Sow MD @ Nov 15 2019 7:42PM Signed by Dr. Stu Sow @ Nov 15 2019 7:43PM
== END 2019-11-15 21:21 | disposition home or self-care (01) ==
LOC: MW.ED 18:32
DX: I47.1 Supraventricular tachycardia (principal); Z79.899 Other long term (current) drug therapy
CPT/HCPCS: 36415; 71045; 80053; 81001; 83735; 84443; 84484; 84703; 85025; 85379; 93005; 96374; 99285; A9270; J0153; J7030; 99284

== ENCOUNTER 2021-06-04 06:44 | Emergency (ER) | payer BC, OTHER ==
[2021-06-04] MEDS ORDERED: Acetaminophen/oxyCODONE 325-5 MG Tab PO ONE (07:18)
[2021-06-04] MEDS ORDERED: Ibuprofen 600 MG Tab PO ONE (07:18)
[2021-06-04] MEDS ORDERED: Ondansetron 4 MG/2 ML SDV IVPUSH ONE (08:04)
[2021-06-04] MEDS ORDERED: Morphine 4 MG/ML VIAL IVPUSH ONE (08:04)
[2021-06-04] MEDS ORDERED: Sodium Chloride 0.9% 1,000 ML IV ONE (08:05)
[2021-06-04 09:03] LABS: BLOOD UREA NITROGEN,BUN 8 mg/dL (7.0-18.0); CHLORIDE,CL 100 mmol/L (98-107); ESTIMATED GFR > 60.0 ml/min; GLUCOSE RANDOM 92 mg/dL (74-106); POTASSIUM,K 3.6 mmol/L (3.5-5.1); SODIUM,NA 140 mmol/L (136-145)
[2021-06-04] MEDS ORDERED: Iopamidol 755 MG/ML 500 ML Multipack Bottle IVPUSH STA (09:51)
[2021-06-04] MEDS ORDERED: HYDROmorphone 1 MG/ML Syringe IVPUSH ONE (10:15)
== END 2021-06-04 11:17 | disposition home or self-care (01) ==
LOC: MW.ED 06:44
DX: S22.32XA Fracture of one rib, left side, initial encounter for closed fracture (principal); W01.198A Fall on same level from slipping, tripping and stumbling with subsequent striking against other object, initial encounter
CPT/HCPCS: 36415; 71101; 71260; 80053; 84703; 85025; 96374; 96375; 99283; A9270; J1170; J2270; J2405; J7030; Q9967